=== PATIENT | male | born 1980 | race Caucasian/White ===

== ENCOUNTER 2019-01-01 21:34 | Inpatient (IN) | payer BC ==
[~2019-01-01] VITALS: Ht 177.8 cm; Wt 74.0 kg
--- NOTE | 2019-01-01 21:42 | NUR ---
PT PLACED IN C-COLLAR. PT TO CT AT THIS TIME.
[2019-01-01 22:12] LABS: BASOPHILS 0.4 % (0-2); EOSINOPHILS 1.4 % (0-7); HEMOGLOBIN 16.7 g/dL (13.5-17.5); IMMATURE GRANULOCYTES 0.7 % (0-5); LYMPHOCYTES 48.1 % (15-50); MCH 31.2 pg (26.0-34.0); MCHC 35.5 g/dL (31.0-37.0); MCV 87.9 fL (80.0-100.0); MEAN PLATELET VOLUME 13.1 fL (7.4-10.4); NEUTROPHILS 42.4 % (40-80); PLATELET COUNT 179 10x3/uL (130-400); RBC 5.35 10x6/uL (4.20-6.10); RDW 13.6 % (11.5-14.5); WBC 13.2 10x3/uL (4.8-10.8)
--- NOTE | 2019-01-01 22:13 | NUR ---
POLICE AT BEDSIDE AT THIS TIME.
[2019-01-01 22:22] VITALS: BP 134/77
[2019-01-01 22:27] LABS: ALBUMIN 4.1 g/dL (3.4-5.0); ALKALINE PHOSPHATASE 69 U/L (46-116); ALT (SGPT) 26 U/L (10-68); BILIRUBIN - TOTAL 0.22 mg/dL (0.2-1.3); CALC OSMOLALITY 291 mosm/kg (275-300); CALCIUM 9.4 mg/dL (8.5-10.1); CARBON DIOXIDE 23.3 mmol/L (21.0-32.0); CHLORIDE - SERUM 108 mmol/L (98-107); GLUCOSE 103 mg/dL (74-106); POTASSIUM - SERUM 3.8 mmol/L (3.5-5.1); PROTEIN - SERUM 7.6 g/dL (6.4-8.2); SODIUM 147 mmol/L (136-145); UREA NITROGEN 12 mg/dL (7-18); eGFR NON AFRICAN AMERICAN 89 mL/min (90-120)
[2019-01-01 22:43] LABS: CKMB 1.2 U/L (0.0-3.6); CREATINE KINASE 129 UL (21-232)
[2019-01-01 22:46] LABS: TROPONIN-I < 0.017 ng/mL (0.000-0.060)
[2019-01-01 23:07] VITALS: BP 110/74
[2019-01-01 23:38] VITALS: BP 99/51
[2019-01-01 23:42] LABS: APPEARANCE CLEAR (CLEAR); BILIRUBIN NEGATIVE (NEGATIVE); COLOR YELLOW (YELLOW); GLUCOSE NEGATIVE (NEGATIVE); KETONE NEGATIVE (NEGATIVE); NITRITE NEGATIVE (NEGATIVE); PROTEIN NEGATIVE (NEGATIVE); SPECIFIC GRAVITY 1.015 (1.005-1.020); UROBILINOGEN NORMAL (NORMAL)
[2019-01-01 23:48] LABS: UDS - AMPHET NEGATIVE QUAL (NEGATIVE); UDS - BARB NEGATIVE QUAL (NEGATIVE); UDS - BENZO NEGATIVE QUAL (NEGATIVE); UDS - COCAINE NEGATIVE QUAL (NEGATIVE); UDS - OPIATE NEGATIVE QUAL (NEGATIVE); UDS - PCP NEGATIVE QUAL (NEGATIVE); UDS - THC POSITIVE QUAL (NEGATIVE)
[2019-01-02] VITALS (11 sets, daily range): BP systolic 101–124; BP diastolic 58–87; Ht 177.8 cm; Wt 74.0 kg
--- NOTE | 2019-01-02 01:20 | NUR ---
pt recieved from er via wheelchair, a/ox4, transfers self to bed, assessment completed
--- NOTE | 2019-01-02 03:30 | NUR ---
pt awake, answers questions appropriately, no sob noted
[2019-01-02 04:43] LABS: BASOPHILS 0.1 % (0-2); EOSINOPHILS 0.2 % (0-7); HEMATOCRIT 42.2 % (42.0-54.0); HEMOGLOBIN 14.7 g/dL (13.5-17.5); IMMATURE GRANULOCYTES 0.4 % (0-5); LYMPHOCYTES 15.7 % (15-50); MCH 30.5 pg (26.0-34.0); MCHC 34.8 g/dL (31.0-37.0); MCV 87.6 fL (80.0-100.0); NEUTROPHILS 78.6 % (40-80); RBC 4.82 10x6/uL (4.20-6.10); RDW 13.7 % (11.5-14.5); WBC 11.2 10x3/uL (4.8-10.8)
[2019-01-02 05:05] LABS: PLATELET COUNT 128 10x3/uL (130-400)
[2019-01-02 05:15] LABS: CALC OSMOLALITY 288 mosm/kg (275-300); CALCIUM 8.5 mg/dL (8.5-10.1); CARBON DIOXIDE 22.6 mmol/L (21.0-32.0); CHLORIDE - SERUM 110 mmol/L (98-107); CREATININE - SERUM 0.9 mg/dL (0.6-1.3); GLUCOSE 94 mg/dL (74-106); MAGNESIUM - SERUM 1.6 mg/dL (1.8-2.4); PHOSPHOROUS 3.9 mg/dL (2.5-4.9); POTASSIUM - SERUM 4.3 mmol/L (3.5-5.1); SODIUM 145 mmol/L (136-145); UREA NITROGEN 12 mg/dL (7-18); eGFR NON AFRICAN AMERICAN > 90 mL/min (90-120)
--- NOTE | 2019-01-02 05:32 | NUR ---
resting quietly with no distress
--- NOTE | 2019-01-02 07:00 | NUR ---
REPORT RECEIVED. ASSESSMENT COMPLETE PRE FLOW SHEET. VSS. NO NEW CHANGES WILL CONTINUE TO MONITOR
--- NOTE | 2019-01-02 07:15 | NUR ---
REPORT RECEIVED. ASSESSMENT COMPLETE PER FLOW SHEET. VSS. NO NEW CHANGES PT RESTING COMFORTABLY WILL CONTINUE TO MONITOR
--- NOTE | 2019-01-02 07:43 | NUR ---
MIAN DIRECTOR OF HOTEL AT BEDSIDE GIVEN UDPATE
--- NOTE | 2019-01-02 07:59 | NUR ---
PT TO CT AT THIS TIME VIA BED
--- NOTE | 2019-01-02 09:20 | NUR ---
PT BACK FROM CT AT THIS TIME VSS FAMILY AT BEDSIDE GIVEN UDPATE
--- NOTE | 2019-01-02 10:04 | NUR ---
MICHELLE WITH [facility] CALLED GIVEN UPDATE. NO NEW ORDERS
[2019-01-02 10:58] LABS: APTT 32.4 SECONDS (22.8-39.4); INR 1.03 (0.85-1.17)
--- NOTE | 2019-01-02 11:40 | NUR ---
DR RHODES AT BEDSIDE GIVEN UPDATE NEW ORDERS RECEIVED
--- NOTE | 2019-01-02 13:10 | NUR ---
GIVEN LUNCH DENIES NEEDS WILL CONTINUE TO MONITOR
--- NOTE | 2019-01-02 21:00 | NUR ---
PT REPORTS HE DOES NOT SMOKE CIGARETTES, REQUESTS TO REMOVE NICOTINE PATCH.
--- NOTE | 2019-01-02 22:00 | NUR ---
TELEMETRY CALLED FOR MONITOR, WAS INFORMED THERE ARE NO AVAILABLE MONITORS.
[2019-01-03 02:49] VITALS: BP 108/71
--- NOTE | 2019-01-03 03:27 | NUR ---
I have reviewed this patient and I concur with the Shift Assessment completed by the Licensed Practical Nurse today this shift.
[2019-01-03 04:44] LABS: BASOPHILS 0.2 % (0-2); EOSINOPHILS 1.3 % (0-7); HEMOGLOBIN 14.8 g/dL (13.5-17.5); IMMATURE GRANULOCYTES 0.4 % (0-5); LYMPHOCYTES 32.5 % (15-50); MCH 30.6 pg (26.0-34.0); MCHC 34.4 g/dL (31.0-37.0); MCV 88.8 fL (80.0-100.0); MEAN PLATELET VOLUME 12.8 fL (7.4-10.4); MONOCYTES 9.1 % (2-11); NEUTROPHILS 56.5 % (40-80); PLATELET COUNT 122 10x3/uL (130-400); RBC 4.84 10x6/uL (4.20-6.10); RDW 13.7 % (11.5-14.5)
[2019-01-03 04:47] LABS: WBC 5.5 10x3/uL (4.8-10.8)
[2019-01-03 05:05] LABS: CALC OSMOLALITY 281 mosm/kg (275-300); CALCIUM 8.4 mg/dL (8.5-10.1); CHLORIDE - SERUM 106 mmol/L (98-107); CREATININE - SERUM 0.9 mg/dL (0.6-1.3); GLUCOSE 97 mg/dL (74-106); MAGNESIUM - SERUM 1.7 mg/dL (1.8-2.4); POTASSIUM - SERUM 4.5 mmol/L (3.5-5.1); SODIUM 142 mmol/L (136-145); UREA NITROGEN 11 mg/dL (7-18); eGFR NON AFRICAN AMERICAN > 90 mL/min (90-120)
[2019-01-03 05:12] LABS: CARBON DIOXIDE 30.2 mmol/L (21.0-32.0)
[2019-01-03 06:29] VITALS: BP 126/83
[2019-01-03 10:26] VITALS: BP 112/74
[2019-01-03 12:43] VITALS: BP 105/54
--- NOTE | 2019-01-03 13:26 | MORECARE ---
CASE MANAGEMENT DISCHARGE SUMMARY PATIENT: ROSALIND ZAMBRANO UNIT: [id number] ADM DATE: 01/02/19 AGE: 38 : 80 SEX: M ROOM/BED: D.2205 AUTHOR: ANTOINE CALLEJAS PHYSICIAN: REFERRING PHYSICIAN: SANJEEV MCCORMACK MD DATE OF SERVICE: 01/03/19 Discharge Plan Patient Name: ROSALIND ZAMBRANO Facility: [facility]:[place] : 1980 Planned Disposition: Home or Self Care Anticipated Discharge Date: Discharge Date: Expected LOS: Initial Reviewer: [email or web address] Initial Review Date: 01/02/2019 Generated: 01/03/19 2:26 pm DCPIA - Discharge Planning Initial Assessment Updated by [email or web address]: Vanessa Lynch on 01/03/19 1:26 pm * Is the patient Alert and Oriented? Yes * How many steps to enter\exit or inside your home? * PCP VINNY * Pharmacy [facility] * Preadmission Environment Home with Family * ADLs Independent * Equipment None * List name and contact numbers for known caregivers / representatives who currently or will assist patient after discharge: ROMAN () [phone] * Verbal permission to speak to the caregivers and representatives has been obtained from the patient. N/A * Community resources currently utilized None * Additional services required to return to the preadmission environment? No * Can the patient safely return to the preadmission environment? Yes * Has this patient been hospitalized within the prior 30 days at any hospital? No Patient Name: ROSALIND ZAMBRANO Page [id number] at 1326 All edits/amendments must be made on the electronic document DICTATION DATE: 01/03/19 1326 DIRECTOR OF CHANNEL MARKETING: SAGRARIO 01/03/19 1326 RPT#: [id number] DC DATE: STATUS: ADM IN [facility] [address] [place] [address] END OF REPORT
--- NOTE | 2019-01-03 13:35 | MORECARE ---
CASE MANAGEMENT DISCHARGE SUMMARY PATIENT: ROSALIND ZAMBRANO UNIT: [id number] ADM DATE: 01/02/19 AGE: 38 : 80 SEX: M ROOM/BED: D.2205 AUTHOR: ANTOINE CALLEJAS PHYSICIAN: REFERRING PHYSICIAN: SANJEEV MCCORMACK MD DATE OF SERVICE: 01/03/19 Discharge Plan Patient Name: ROSALIND ZAMBRANO Facility: [facility]:[place] : 1980 Planned Disposition: Home or Self Care Anticipated Discharge Date: Discharge Date: Expected LOS: Initial Reviewer: [email or web address] Initial Review Date: 01/02/2019 Generated: 01/03/19 2:35 pm Comments DCP- Discharge Planning Updated by [email or web address]: Vanessa Lynch on 01/03/19 12:[address] Patient Name: ROSALIND ZAMBRANO Admission Status: ER Accout number: [id number] Admission Date: 01-02-2019 : 1980 Admission Diagnosis: Attending: SANJEEV MCCORMACK Current LOS: 1 Anticipated DC Date: Planned Disposition: Home or Self Care Primary Insurance: [employer] [facility] Discharge Planning Comments: CM met with patient to complete initial dc planning assessment. CM educated patient on the CM role and verbal consent given by patient to complete assessment. Patient lives at home with his where he is independent with his care. At discharge patient plans to return home and feels this is a safe discharge. His will be his hazmat cdl a driver home. CM discussed availability of home health, rehab services, and medical equipment. Patient denied known discharge needs at this time. CM will continue to follow and will assist as needed with dc plans/needs. Slide Fastener Repairer: Vanessa Lynch DCPIA - Discharge Planning Initial Assessment Updated by [email or web address]: Vanessa Lynch on 01/03/19 1:26 pm * Is the patient Alert and Oriented? Yes * How many steps to enter\exit or inside your home? * PCP VINNY * Pharmacy [facility] * Preadmission Environment Home with Family * ADLs Independent * Equipment None * List name and contact numbers for known caregivers / representatives who currently or will assist patient after discharge: ROMAN () [phone] * Verbal permission to speak to the caregivers and representatives has been obtained from the patient. N/A * Community resources currently utilized None * Additional services required to return to the preadmission environment? No * Can the patient safely return to the preadmission environment? Yes * Has this patient been hospitalized within the prior 30 days at any hospital? No Last DP export: 01/03/19 12:26 p Patient Name: ROSALIND ZAMBRANO Page [id number] at 1335 All edits/amendments must be made on the electronic document DICTATION DATE: 01/03/191334 RECREATIONAL LEADER: SAGRARIO 01/03/191334 RPT#: [id number] DC DATE: STATUS: ADM IN [facility] [address] [place] [address] END OF REPORT
[2019-01-03 18:35] VITALS: BP 132/85
--- NOTE | 2019-01-03 19:40 | NUR ---
A&O X 4, AMBULATORY. LEFT CHEST TUBE ON SUCTION AT 20. LUNG SOUNDS CTA. REPORTS ADEQUATE PAIN CONTROL WITH CPC CODER, DENIES NEEDS, WILL CONTINUE TO MONITOR.
[2019-01-03 20:59] VITALS: BP 117/81
[2019-01-04 01:02] VITALS: BP 124/73
--- NOTE | 2019-01-04 03:05 | NUR ---
I have reviewed this patient and I concur with the Shift Assessment completed by the Licensed Practical Nurse today this shift.
[2019-01-04 04:55] VITALS: BP 141/80
[2019-01-04 05:10] LABS: BASOPHILS 0.4 % (0-2); EOSINOPHILS 2.9 % (0-7); HEMATOCRIT 44.4 % (42.0-54.0); HEMOGLOBIN 15.2 g/dL (13.5-17.5); IMMATURE GRANULOCYTES 0.4 % (0-5); LYMPHOCYTES 33.6 % (15-50); MCH 30.1 pg (26.0-34.0); MCHC 34.2 g/dL (31.0-37.0); MCV 87.9 fL (80.0-100.0); MEAN PLATELET VOLUME 12.4 fL (7.4-10.4); MONOCYTES 9.1 % (2-11); NEUTROPHILS 53.6 % (40-80); PLATELET COUNT 132 10x3/uL (130-400); RBC 5.05 10x6/uL (4.20-6.10); RDW 13.1 % (11.5-14.5); WBC 5.2 10x3/uL (4.8-10.8)
[2019-01-04 05:28] LABS: CALC OSMOLALITY 276 mosm/kg (275-300); CALCIUM 8.2 mg/dL (8.5-10.1); CARBON DIOXIDE 30.4 mmol/L (21.0-32.0); CHLORIDE - SERUM 103 mmol/L (98-107); GLUCOSE 95 mg/dL (74-106); POTASSIUM - SERUM 4.4 mmol/L (3.5-5.1); SODIUM 139 mmol/L (136-145); UREA NITROGEN 9 mg/dL (7-18); eGFR NON AFRICAN AMERICAN 89 mL/min (90-120)
--- NOTE | 2019-01-04 07:30 | NUR ---
PT RESTING QUIETLY IN BED WATCHING TV. NO ACUTE DISTRESS NOTED AT THIS TIME. REPORTS PAIN 6/10 AT THIS TIME. DILAUDID SCHOOL DIRECTOR INTACT AND IN USE. PT VOICES PAIN RELIEF WITH CURRENT PAIN REGIMEN. IV TO RIGHT AC WITH NS @ 100ML/HR INFUSING VIA PUMP. SITE WITHOUT REDNESS OR EDEMA. DENIES FURTHER NEEDS AT THIS TIME. CL WITHIN REACH. ENCOURAGED TO CALL WITH NEEDS. CONTINUE POC
[2019-01-04 08:07] VITALS: BP 104/60
--- NOTE | 2019-01-04 09:46 | NUR ---
Nutrition follow-up: Diet: Regular PO Intake fair go good at this time Wt: 163# Possible CT removed today RDN following.
[2019-01-04 13:13] VITALS: BP 109/67
[2019-01-04 16:21] VITALS: BP 118/71
--- NOTE | 2019-01-04 17:45 | NUR ---
SITTING UP IN CHAIR WITH AT BEDSIDE. A/O WITH NO SIGNS OF DISTRESS NOTED. DENIES PAIN OR OTHER NEEDS AT THIS TIME. CONTINUE WITH PLAN OF CARE.
[2019-01-04 21:25] VITALS: BP 112/79
[2019-01-05 01:24] VITALS: BP 134/75
[2019-01-05 05:44] VITALS: BP 128/79
[2019-01-05 06:40] LABS: BASOPHILS 0.3 % (0-2); EOSINOPHILS 2.5 % (0-7); HEMATOCRIT 42.6 % (42.0-54.0); HEMOGLOBIN 14.8 g/dL (13.5-17.5); LYMPHOCYTES 27.5 % (15-50); MCH 30.3 pg (26.0-34.0); MCHC 34.7 g/dL (31.0-37.0); MCV 87.3 fL (80.0-100.0); MEAN PLATELET VOLUME 12.5 fL (7.4-10.4); MONOCYTES 7.7 % (2-11); PLATELET COUNT 145 10x3/uL (130-400); RBC 4.88 10x6/uL (4.20-6.10); RDW 12.9 % (11.5-14.5); WBC 6.1 10x3/uL (4.8-10.8)
[2019-01-05 07:01] LABS: CALC OSMOLALITY 274 mosm/kg (275-300); CALCIUM 8.6 mg/dL (8.5-10.1); CARBON DIOXIDE 28.7 mmol/L (21.0-32.0); CHLORIDE - SERUM 101 mmol/L (98-107); GLUCOSE 142 mg/dL (74-106); POTASSIUM - SERUM 3.6 mmol/L (3.5-5.1); SODIUM 137 mmol/L (136-145); UREA NITROGEN 9 mg/dL (7-18); eGFR NON AFRICAN AMERICAN 89 mL/min (90-120)
--- NOTE | 2019-01-05 07:54 | NUR ---
AWAKE AND ALERT. ORIENTED X3. NO C/O AT THIS TIME. LUNGS ARE CLEAR BILATERALLY, NO COUGH NOTED. SKIN IS INTACT WITHOUT REDNESS EXCEPT OLD INSERTION SITE TO LEFT CHEST WALL FOR CT WHICH HAS A DRY INTACT DRESSING IN PLACE. IV TO RIGHT AC IS PATENT WTIHOUT REDNESS AT INSERTION SITE. DENIES NEEDS.
[2019-01-05 09:04] VITALS: BP 112/66
--- NOTE | 2019-01-05 11:03 | NUR ---
DISCHARGED TO HOME AMBULATORY WITH . DISCHARGE INSTRUCTIONS GIVEN BOTH VERBALLY AND WRITTEN. ALL QUESTIONS ANSWERED. PATIENT AND VERBALIZED UNDERSTANDING OF SAME. NO NEW PRESPRICTIONS NEEDED. IV TO RIGHT AC D/C WITH CATHETER INTACT. ALL BELONGINGS WITH PATIENT.
--- NOTE | 2019-01-08 13:20 | MORECARE ---
CASE MANAGEMENT DISCHARGE SUMMARY PATIENT: ROSALIND ZAMBRANO UNIT: [id number] ADM DATE: 01/02/19 AGE: 38 : 80 SEX: M ROOM/BED: D.2205 AUTHOR: ANTOINE CALLEJAS PHYSICIAN: REFERRING PHYSICIAN: SANJEEV MCCORMACK MD DATE OF SERVICE: 01/08/19 Discharge Plan Patient Name: ROSALIND ZAMBRANO Facility: [facility]:[place] : 1980 Planned Disposition: Home or Self Care Anticipated Discharge Date: Discharge Date: 01/05/2019 Expected LOS: Initial Reviewer: [email or web address] Initial Review Date: 01/02/2019 Generated: 01/08/19 2:20 pm Comments DCP- Discharge Planning Updated by [email or web address]: Vanessa Lynch on 01/03/19 12:[address] Patient Name: ROSALIND ZAMBRANO Admission Status: ER Accout number: [id number] Admission Date: 01-02-2019 : 1980 Admission Diagnosis: Attending: SANJEEV MCCORMACK Current LOS: 1 Anticipated DC Date: Planned Disposition: Home or Self Care Primary Insurance: [employer] [facility] Discharge Planning Comments: CM met with patient to complete initial dc planning assessment. CM educated patient on the CM role and verbal consent given by patient to complete assessment. Patient lives at home with his where he is independent with his care. At discharge patient plans to return home and feels this is a safe discharge. His will be his sales driver home. CM discussed availability of home health, rehab services, and medical equipment. Patient denied known discharge needs at this time. CM will continue to follow and will assist as needed with dc plans/needs. Supervisor Instrument Maintenance: Vanessa Lynch DCPIA - Discharge Planning Initial Assessment Updated by [email or web address]: Vanessa Lynch on 01/03/19 1:26 pm * Is the patient Alert and Oriented? Yes * How many steps to enter\exit or inside your home? * PCP VINNY * Pharmacy [facility] * Preadmission Environment Home with Family * ADLs Independent * Equipment None * List name and contact numbers for known caregivers / representatives who currently or will assist patient after discharge: ROMAN () [phone] * Verbal permission to speak to the caregivers and representatives has been obtained from the patient. N/A * Community resources currently utilized None * Additional services required to return to the preadmission environment? No * Can the patient safely return to the preadmission environment? Yes * Has this patient been hospitalized within the prior 30 days at any hospital? No Last DP export: 01/03/19 12:35 p Patient Name: ROSALIND ZAMBRANO Page 14450 at 1320 All edits/amendments must be made on the electronic document DICTATION DATE: 01/08/19 1320 ALTERATIONS TAILOR: SAGRARIO 01/08/19 1320 RPT#: [id number] DC DATE:01/05/19 STATUS: DIS IN [facility] [address] [place] [address] END OF REPORT
== END 2019-01-05 11:05 | disposition home or self-care (01) | DRG 200 ==
LOC: D.ER 21:34 → D.ICU 22:55 → OBSVTIME 22:55 → D.MS 01-02 11:12 → D.ICU 01-02 11:12 → D.MS 01-02 19:17
PROVIDERS: Family Medicine; Radiology Vascular & Interventional Radiology; ADMIT Internal Medicine Nephrology; ATTEND Internal Medicine Nephrology
PROC: 0W9B30Z Drainage of Left Pleural Cavity with Drainage Device, Percutaneous Approach (ICD-10-PCS; principal; 2019-01-02 11:00)
DX: S27.0XXA Traumatic pneumothorax, initial encounter (principal); S22.32XA Fracture of one rib, left side, initial encounter for closed fracture; F17.203 Nicotine dependence unspecified, with withdrawal; E87.0 Hyperosmolality and hypernatremia; V28.0XXA Motorcycle driver injured in noncollision transport accident in nontraffic accident, initial encounter; F10.129 Alcohol abuse with intoxication, unspecified; Y90.6 Blood alcohol level of 120-199 mg/100 ml; D69.6 Thrombocytopenia, unspecified; E83.42 Hypomagnesemia

== ENCOUNTER 2019-03-12 17:20 | Emergency (ER) | payer BC ==
[~2019-03-12] VITALS: Ht 177.8 cm; Wt 77.3 kg
[2019-03-12 17:23] VITALS: Ht 177.8 cm; Wt 77.3 kg
[2019-03-12 17:46] LABS: APPEARANCE CLEAR (CLEAR); BILIRUBIN NEGATIVE (NEGATIVE); COLOR YELLOW (YELLOW); GLUCOSE NEGATIVE (NEGATIVE); KETONE NEGATIVE (NEGATIVE); NITRITE NEGATIVE (NEGATIVE); PROTEIN NEGATIVE (NEGATIVE); SPECIFIC GRAVITY 1.015 (1.005-1.020); UROBILINOGEN NORMAL (NORMAL)
[2019-03-12 17:56] LABS: BASOPHILS 0.3 % (0-2); EOSINOPHILS 0.6 % (0-7); HEMATOCRIT 44.3 % (42.0-54.0); IMMATURE GRANULOCYTES 0.3 % (0-5); LYMPHOCYTES 19.9 % (15-50); MCH 30.7 pg (26.0-34.0); MCHC 33.9 g/dL (31.0-37.0); MCV 90.6 fL (80.0-100.0); MEAN PLATELET VOLUME 12.3 fL (7.4-10.4); MONOCYTES 8.4 % (2-11); NEUTROPHILS 70.5 % (40-80); PLATELET COUNT 164 10x3/uL (130-400); RBC 4.89 10x6/uL (4.20-6.10); RDW 13.1 % (11.5-14.5)
[2019-03-12 18:03] LABS: APTT 27.7 SECONDS (22.8-39.4); INR 0.95 (0.85-1.17); PROTIME 12.2 SECONDS (11.6-15.0)
[2019-03-12 18:06] LABS: CALC OSMOLALITY 282 mosm/kg (275-300); CALCIUM 8.8 mg/dL (8.5-10.1); CARBON DIOXIDE 26.5 mmol/L (21.0-32.0); CHLORIDE - SERUM 106 mmol/L (98-107); CREATININE - SERUM 0.9 mg/dL (0.6-1.3); GLUCOSE 101 mg/dL (74-106); POTASSIUM - SERUM 3.6 mmol/L (3.5-5.1); SODIUM 142 mmol/L (136-145); UREA NITROGEN 13 mg/dL (7-18); eGFR NON AFRICAN AMERICAN > 90 mL/min (90-120)
[2019-03-12 18:11] LABS: ALBUMIN 3.8 g/dL (3.4-5.0); ALKALINE PHOSPHATASE 68 U/L (46-116); ALT (SGPT) 35 U/L (10-68); BILIRUBIN - TOTAL 0.24 mg/dL (0.2-1.3)
[2019-03-12 20:12] VITALS: BP 140/80
== END 2019-03-12 20:48 | disposition home or self-care (01) ==
LOC: D.ER 17:20
PROVIDERS: Family Medicine
DX: S31.119A Laceration without foreign body of abdominal wall, unspecified quadrant without penetration into peritoneal cavity, initial encounter (principal); V86.99XA Unspecified occupant of other special all-terrain or other off-road motor vehicle injured in nontraffic accident, initial encounter